=== PATIENT | female | born 1975 | race Caucasian/White ===

== ENCOUNTER 2017-02-10 16:08 | Emergency (ER) | payer SELFPAY ==
[~2017-02-10] VITALS: Ht 162.6 cm; Wt 54.4 kg
[~2017-02-10 16:08] MED LIST: ESTR2TAB5 PO
--- NOTE | 2017-02-10 17:15 | NUR ---
PT IS RESTING IN BED, AWAITING TO BE SEEN BY MD.
[2017-02-10 17:48] LABS: *URINE HCG, QUAL NEGATIVE (NEGATIVE)
[2017-02-10 17:49] LABS: *BILIRUBIN,URIN NEGATIVE (NEGATIVE); *BLOOD, URINE Trace-intact (NEGATIVE); *CLARITY,URINE CLEAR (CLEAR); *COLOR,URINE YELLOW (YELLOW); *KETONES,URINE NEGATIVE (NEGATIVE); *PROTEIN,URINE NEGATIVE (NEGATIVE); LEUKOCYTE ESTERASE ,URINE NEGATIVE (NEGATIVE); NITRITE, URINE NEGATIVE (NEGATIVE); PH,URINE 6.5 (5.0-8.0); UGLUCOSE NEGATIVE (NEGATIVE)
[2017-02-10 17:54] LABS: BACTERIA,URINE FEW /HPF (NONE SEEN); RBC,URINE 0-3 /HPF (0-3); SQUAMOUS EPITHELIAL CELL,UR FEW /HPF (NONE SEEN); WBC,URINE 0-3 /HPF (0-3)
--- NOTE | 2017-02-10 18:17 | NUR ---
DR LOCKETT AT THE BEDSIDE FOR EVAL AND EXAM.
--- NOTE | 2017-02-10 18:27 | NUR ---
Patient eloped from facility. ER physician notified.
[2017-02-10] MEDS ORDERED: IV NORMAL SALINE 1000 ML BAG IV ONE (18:30)
[2017-02-10] MEDS ORDERED: HYDROMORPHONE 1 MG/1 ML DISP.SYRIN IV ONE (18:30)
[2017-02-10] MEDS ORDERED: ONDANSETRON 4 MG/2 ML VIAL IV ONE (18:30)
== END 2017-02-10 18:29 | disposition left against medical advice (07) ==
LOC: ER 16:11
DX: R09.1 Pleurisy (principal); R11.2 Nausea with vomiting, unspecified; G43.909 Migraine, unspecified, not intractable, without status migrainosus; Z88.0 Allergy status to penicillin; Z85.43 Personal history of malignant neoplasm of ovary; Z85.42 Personal history of malignant neoplasm of other parts of uterus
CPT/HCPCS: 84703; 93005; A4663; J7030

== ENCOUNTER 2017-04-02 10:38 | Emergency (ER) | payer SELFPAY ==
[~2017-04-02] VITALS: Ht 162.6 cm; Wt 54.4 kg
[2017-04-02] MEDS ORDERED: LORAZEPAM 2 MG/1 ML VIAL IV ONE (11:30)
[2017-04-02] MEDS ORDERED: IV NORMAL SALINE 1000 ML BAG IV ONE (11:30)
[2017-04-02] MEDS ORDERED: diphenhydrAMINE 50 MG/1 ML VIAL IV ONE ×2 (11:30→13:00)
[2017-04-02] MEDS ORDERED: ONDANSETRON IV *ER 4 MG/2 ML VIAL IV ONE (11:30)
[2017-04-02] MEDS ORDERED: diphenhydrAMINE 50 MG/1 ML VIAL ONE ×2 (11:42→13:14)
[2017-04-02] MEDS ORDERED: ONDANSETRON 4 MG/2 ML VIAL ONE (11:42)
[2017-04-02] MEDS ORDERED: MAGNESIUM SULFATE/D5W 200 ML ONE (11:42)
[2017-04-02] MEDS ORDERED: LORAZEPAM 2 MG/1 ML VIAL ONE (11:44)
[2017-04-02] MEDS: MAGNESIUM SULFATE/D5W 100 ML IV SCH ×2 (11:47→12:21)
[2017-04-02] MEDS ORDERED: PROCHLORPERAZINE EDISYLATE 10 MG/2 ML VIAL IV ONE (13:00)
[2017-04-02] MEDS ORDERED: PROCHLORPERAZINE EDISYLATE 10 MG/2 ML VIAL ONE (13:14)
[2017-04-02] MEDS ORDERED: KETOROLAC TROMETHAMINE 30 MG INJ IVP ONE (14:30)
[2017-04-02] MEDS ORDERED: KETOROLAC TROMETHAMINE 30 MG INJ ONE (14:44)
--- NOTE | 2017-04-02 16:43 | NUR ---
IV removed. Catheter intact and site benign. Pressure and 4x4 gauze applied to site. No bleeding noted.
--- NOTE | 2017-04-02 16:44 | NUR ---
Patient discharged to home in stable conditon. Written and verbal after care instructions given. Patient verbalizes understanding of instructions.
[2017-04-02 16:46] VITALS: BP 105/63
== END 2017-04-02 16:46 | disposition home or self-care (01) ==
LOC: ER 10:38
DX: R51 Headache (principal); Z85.42 Personal history of malignant neoplasm of other parts of uterus; Z85.43 Personal history of malignant neoplasm of ovary; Z88.0 Allergy status to penicillin
CPT/HCPCS: 96365; 96374; 96375 ×2; 96376; 99284; A4663; J0780; J1200 ×2; J1885; J2060; J2405; J3475; J7030

== ENCOUNTER 2017-04-12 09:10 | Emergency (ER) | payer SELFPAY ==
[~2017-04-12] VITALS: Ht 162.6 cm; Wt 54.4 kg
[2017-04-12] MEDS ORDERED: ONDANSETRON 4 MG/2 ML VIAL IV ONE ×2 (09:45→10:45)
[2017-04-12] MEDS ORDERED: IV NORMAL SALINE 1000 ML BAG IV ONE (09:45)
[2017-04-12] MEDS ORDERED: MAGNESIUM SULFATE/D5W 100 ML IV SCH (09:45)
[2017-04-12] MEDS ORDERED: diphenhydrAMINE 50 MG/1 ML VIAL IV ONE (09:45)
[2017-04-12] MEDS ORDERED: diphenhydrAMINE 50 MG/1 ML VIAL ONE (10:05)
[2017-04-12] MEDS ORDERED: ONDANSETRON 4 MG/2 ML VIAL ONE ×2 (10:05→11:06)
[2017-04-12] MEDS ORDERED: MAGNESIUM SULFATE/D5W 100 ML ONE (10:06)
[2017-04-12] MEDS ORDERED: KETOROLAC TROMETHAMINE 30 MG INJ IVP ONE (11:30)
[2017-04-12] MEDS ORDERED: KETOROLAC TROMETHAMINE 30 MG INJ ONE (11:33)
--- NOTE | 2017-04-12 11:52 | NUR ---
Patient discharged to home in stable conditon. Written and verbal after care instructions given. Patient verbalizes understanding of instructions.pt walks i nsteady gait, requesting to be d/miguel.pain down to tolerable level.
[2017-04-12 11:53] VITALS: BP 111/71
== END 2017-04-12 11:54 | disposition home or self-care (01) ==
LOC: ER 09:10
DX: G43.909 Migraine, unspecified, not intractable, without status migrainosus (principal); Z88.0 Allergy status to penicillin; Z85.42 Personal history of malignant neoplasm of other parts of uterus; Z85.43 Personal history of malignant neoplasm of ovary; Z90.710 Acquired absence of both cervix and uterus
CPT/HCPCS: A4663; J1200; J1885; J2405; J3475; J7030

== ENCOUNTER 2018-07-09 10:23 | Emergency (ER) | payer SELFPAY ==
[~2018-07-09] VITALS: Ht 165.1 cm; Wt 54.4 kg
--- NOTE | 2018-07-09 10:52 | NUR ---
Patient is resting comfortably on gurney while using her personal eelctronic device, NAD, pending x-ray@this time
--- NOTE | 2018-07-09 11:55 | NUR ---
DR MCDOWELL MAKE PATIENT AWARE OF TEST RESULT.
[2018-07-09 12:01] VITALS: BP 11/76
--- NOTE | 2018-07-09 12:01 | NUR ---
Patient discharged to home in stable conditon. Written and verbal after care instructions given. Patient verbalizes understanding of instructions.
== END 2018-07-09 12:03 | disposition home or self-care (01) ==
LOC: ER 10:25
DX: S69.92XA Unspecified injury of left wrist, hand and finger(s), initial encounter (principal); M20.012 Mallet finger of left finger(s); Z88.0 Allergy status to penicillin; Z90.710 Acquired absence of both cervix and uterus; Z90.49 Acquired absence of other specified parts of digestive tract; W21.07XA Struck by softball, initial encounter; Y93.89 Activity, other specified; Y92.89 Other specified places as the place of occurrence of the external cause; Y99.8 Other external cause status
CPT/HCPCS: 73140; A4663